=== PATIENT | female | born 1965 | race Caucasian/White ===

== ENCOUNTER 2018-01-01 10:11 | Emergency (ER) | payer OTHER ==
--- NOTE | 2018-01-01 10:56 | ER Document Report ---
ED Skin Rash/Insect Bite/Abscs - General Chief Complaint: Abscess Stated Complaint: ABSCESS Time Seen by Provider: 01/01/18 10:43 Mode of Arrival: Ambulatory Information source: Patient Notes: 52-year-old female presents to ED for concern of cyst to the right groin that is painful and is increasing in size. She states the pain started on Tuesday. She states she has a history of the same type of abscess in the past as well as pilonidal cyst. She is alert and oriented speaks in full sentences pupils equal and reactive light respirations regular and unlabored and able to walk with a even steady gait. TRAVEL OUTSIDE OF THE [place] IN LAST 30 DAYS: No - HPI Patient complains to provider of: Tender/swollen area Onset: Other - Fried Onset/Duration: Gradual Quality of pain: Sharp Severity: Mild Pain Level: 2 Skin Character: Abscess Quality of rash: Painful Identify cause: No Exacerbated by: Movement, Walking Relieved by: Denies Similar symptoms previously: Yes Recently seen / treated by doctor: No - Related Data Allergies/Adverse Reactions: acetaminophen [From Percocet] Allergy (Verified 01/01/18 10:14) amoxicillin [From Augmentin] Allergy (Verified 01/01/18 10:14) azithromycin Allergy (Verified 01/01/18 10:14) clavulanic acid [From Augmentin] Allergy (Verified 01/01/18 10:14) codeine Allergy (Verified 01/01/18 10:51) diazepam [From Valium] Allergy (Verified 01/01/18 10:14) erythromycin base Allergy (Verified 01/01/18 10:14) levofloxacin [From Levaquin] Allergy (Verified 01/01/18 10:14) oxycodone [From Percocet] Allergy (Verified 01/01/18 10:14) Penicillins Allergy (Verified 01/01/18 10:14) Past Medical History - General Information source: Patient - Social History Smoking Status: Former Smoker Cigarette use (# per day): No Chew tobacco use (# tins/day): No Smoking Education Provided: No Frequency of alcohol use: Occasional Drug Abuse: None 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 Lives with: Family Family History: Reviewed & Not Pertinent Patient has suicidal ideation: No Patient has homicidal ideation: No - Past Medical History Cardiac Medical History: Reports: Hx Hypercholesterolemia Pulmonary Medical History: Reports: Hx Pneumonia EENT Medical History: Reports: None, Other - Parotid tumor removed noncancerous Neurological Medical History: Reports: None Endocrine Medical History: Reports: None Renal/ Medical History: Reports: Hx Kidney Stones, Other - Endometriosis Malignancy Medical History: Reports: None GI Medical History: Reports: None Musculoskeltal Medical History: Reports Hx Musculoskeletal Trauma Skin Medical History: Reports Hx Cellulitis - Pilonidal cyst multiple abscesses Psychiatric Medical History: Reports: Hx Anxiety, Hx Depression Traumatic Medical History: Reports: None Infectious Medical History: Reports: None Past Surgical History: Reports: Hx Cholecystectomy, Hx Orthopedic Surgery - bilateral knees, Other - Parotid gland tumor removed, pilonidal cyst removal - Immunizations Immunizations up to date: Yes Review of Systems - Review of Systems Constitutional: No symptoms reported EENT: No symptoms reported Cardiovascular: No symptoms reported Respiratory: No symptoms reported Gastrointestinal: No symptoms reported Genitourinary: No symptoms reported Female Genitourinary: No symptoms reported Musculoskeletal: No symptoms reported Skin: Other - Abscess to right groin at the crease between the pelvic and thigh Hematologic/Lymphatic: No symptoms reported Neurological/Psychological: No symptoms reported -: Yes All other systems reviewed and negative Physical Exam - Vital signs Vitals: Temp Pulse Resp BP Pulse Ox 99.4 F 118 H 16 137/79 H 96 01/01/18 10:17 01/01/18 10:17 01/01/18 10:17 01/01/18 10:17 01/01/18 10:17 Interpretation: Normal - General General appearance: Appears well, Alert - HEENT Head: Normocephalic, Atraumatic Eyes: Normal Pupils: PERRL - Respiratory Respiratory status: No respiratory distress Chest status: Nontender Breath sounds: Normal Chest palpation: Normal - Cardiovascular Rhythm: Regular Heart sounds: Normal auscultation Murmur: No - Abdominal Inspection: Normal Distension: No distension Bowel sounds: Normal Tenderness: Nontender Organomegaly: No organomegaly - Back Back: Normal, Nontender - Extremities General upper extremity: Normal inspection, Nontender, Normal color, Normal ROM , Normal temperature General lower extremity: Normal inspection, Nontender, Normal color, Normal ROM , Normal temperature, Normal weight bearing. No: Mendoza's sign - Neurological Neuro grossly intact: Yes Cognition: Normal Orientation: AAOx4 [place] Coma Scale Eye Opening: Spontaneous Uday Coma Scale Verbal: Oriented [place] Coma Scale Motor: Obeys Commands [place] Coma Scale Total: 15 Speech: Normal Motor strength normal: LUE, RUE, LLE, RLE Sensory: Normal - Psychological Associated symptoms: Normal affect, Normal mood - Skin Skin Temperature: Warm Skin Moisture: Dry Skin Color: Normal Skin irregularity: Abscess - Decreased between the right thigh and pelvic area Character of irregularity: Erythematous Irregularity with: Swelling, Tenderness, Warmth Course - Vital Signs Vital signs: Temp Pulse Resp BP Pulse Ox 98.5 F 107 H 18 145/84 H 97 01/01/18 11:55 01/01/18 11:55 01/01/18 11:55 01/01/18 11:55 01/01/18 11:55 Procedures - Incision and Drainage Right Groin Time completed: :41 Type: Simple mL's of anesthetic: 5 Blade size: 11 I&D procedure: Shurclens applied - surgical scrub, Sterile dressing applied Incision Method: Incision made by scalpel Amount/type of drainage: moderate amount purulent Discharge - Discharge Clinical Impression: Abscess of right groin HTN (hypertension) Qualifiers: Hypertension type: unspecified Qualified Code(s): I10 - Essential (primary) hypertension Condition: Stable Disposition: HOME, SELF-CARE Instructions: Family Physicians / Practices Additional Instructions: ABSCESS: You have an abscess (boil). This a pus-forming infection, usually due to staph. Some boils may be left to drain on their own, but most require lancing. From the time the tender lump first appears, it may be three or four days before the abscess is ready to erin. Local heat and rest help at this stage of treatment. An antibiotic may prevent spread of the infection. Once the abscess is opened, packing may be placed into it. This is done so pus is not sealed inside by premature closure of the cavity. The packing will be removed at your follow-up visit or you may be advised to remove it yourself at home. Sometimes this packing must be replaced a few times during healing. The wound will heal with surprisingly little scar. Depending on the size and location of an abscess, healing can take one to four weeks. You may shower and wash the area around the incision site two or three times a day. Antibiotics may be prescribed, but are usually not necessary after an abscess has been drained. If you develop fever, chills, worsening pain, or increasing swelling in the area, call the doctor or return immediately. POST INCISION AND DRAINAGE: You have had an incision made to allow drainage of an abscess. The incision must remain open so that pus and debris can drain from the wound. If the abscess cavity is large, packing is placed. This keeps the tissues from collapsing and trapping pus inside, while the body shrinks the cavity. The packing may need to be replaced every day or two. The physician will instruct you on the packing. Keep a bulky dressing over the area. Replace it if it becomes saturated with blood or pus. Do not disturb the packing (if present). You may shower and cleanse the area with gentle soap and warm water two or three times a day. Local warmth may be soothing, and may promote faster healing. Return if you develop high fever or chills, or if you note spreading redness, increasing swelling, or increasing tenderness. Epsom Salt Soaks Soak the wound area in a container of warm epsom salt water. If you can't get the wound area into a bucket or landry, use a folded towel soaked in the epsom salt solution and apply to the area. Use clean hot tap water (about the temperature of a very warm bath), mixing in about one (1) teaspoon for every pint of water. Two gallon --> 16 teaspoons Epsom Salts One gallon --> 8 teaspoons Epsom Salts Two quarts --> 4 teaspoons Epsom Salts One quart --> 2 teaspoons Epsom Salts Soak the wound for about 20 minutes while gently moving it around in the water. Repeat this four (4) times a day. Clindamycin You have been given a prescription for the antibiotic clindamycin. It is often prescribed for infections in the mouth, such as dental infections or abscesses, and for skin infections due to MRSA. It's important that you take all the medication, unless instructed otherwise by your physician. Failure to complete the entire course can result in relapse of your condition. Common side effects of antibiotics include nausea, intestinal cramping, or diarrhea. Women may develop vaginal yeast infections, and babies can get yeast (thrush) in the mouth following the use of antibiotics. Contact your physician if you develop significant side effects from this medication. Allergy to this antibiotic can result in hives, wheezing, faintness, or itching. If symptoms of allergy occur, stop the medication and call the doctor. FOLLOW-UP CARE: Most simple abscesses will not require a follow up visit. If you had packing placed in the abscess, remove it as instructed by the physician. If you have been referred to a physician for follow-up care, call the physicians office for an appointment as you were instructed or within the next two days. If you experience worsening or a significant change in your symptoms, return to the Emergency Department at any time for re-evaluation. Prescriptions: Clindamycin HCl 300 mg PO Q6 #28 capsule Forms: Elevated Blood Pressure, Return to Work Referrals: MICHELL BLANCHARD MD [Primary Care Provider] - Follow up as needed
[2018-01-01] MEDS ORDERED: CLINDAMYCIN HCL 150 MG CAPSULE PO ONE (11:49)
[2018-01-01 11:56] VITALS: BP 145/84
== END 2018-01-01 12:03 | disposition home or self-care (01) ==
LOC: ER 10:11
PROC: 0H9HXZZ Drainage of Right Upper Leg Skin, External Approach (ICD-10-PCS; principal; 2018-01-01)
DX: L02.214 Cutaneous abscess of groin (principal); I10 Essential (primary) hypertension; Z87.891 Personal history of nicotine dependence
CPT/HCPCS: 87070; 87075; 87077; 87186; 87205; 99283

== ENCOUNTER 2018-09-09 11:34 | Emergency (ER) | payer OTHER ==
--- NOTE | 2018-09-09 13:39 | ER Document Report ---
ED Medical Screen (RME) - General Chief Complaint: Leg Pain Stated Complaint: RIGHT LEG PAIN Time Seen by Provider: 09/09/18 13:30 Primary Care Provider: MICHELL BLANCHARD MD [Primary Care Provider] - Follow up as needed Notes: 52-year-old female patient complains of right leg pain for 1 week. It is worse when she walks. When she walks the pain is predominantly in the calf region. She does not know if there is any swelling but does not think there is. Brief exam shows the cath to be a little firm, and a little bit tender. There is also some tenderness to the anterior medial leg muscles. I have greeted and performed a rapid initial assessment of this patient. A comprehensive ED assessment and evaluation of the patient, analysis of test results and completion of the medical decision making process will be conducted by additional ED providers. TRAVEL OUTSIDE OF THE [place] IN LAST 30 DAYS: No - Related Data Allergies/Adverse Reactions: acetaminophen [From Percocet] Allergy (Verified 01/01/18 10:14) amoxicillin [From Augmentin] Allergy (Verified 01/01/18 10:14) azithromycin Allergy (Verified 01/01/18 10:14) clavulanic acid [From Augmentin] Allergy (Verified 01/01/18 10:14) codeine Allergy (Verified 01/01/18 10:51) diazepam [From Valium] Allergy (Verified 01/01/18 10:14) erythromycin base Allergy (Verified 01/01/18 10:14) levofloxacin [From Levaquin] Allergy (Verified 01/01/18 10:14) oxycodone [From Percocet] Allergy (Verified 01/01/18 10:14) Penicillins Allergy (Verified 01/01/18 10:14) Past Medical History - Past Medical History Cardiac Medical History: Reports: Hx Hypercholesterolemia Pulmonary Medical History: Reports: Hx Pneumonia Renal/ Medical History: Reports: Hx Kidney Stones. Denies: Hx Peritoneal Dialysis Musculoskeltal Medical History: Reports Hx Musculoskeletal Trauma Skin Medical History: Reports Hx Cellulitis - Pilonidal cyst multiple abscesses Psychiatric Medical History: Reports: Hx Anxiety, Hx Depression Past Surgical History: Reports: Hx Cholecystectomy, Hx Orthopedic Surgery - bilateral knees, Other - Parotid gland tumor removed, pilonidal cyst removal - Immunizations Immunizations up to date: Yes Physical Exam - Vital signs Vitals: Temp Pulse Resp BP Pulse Ox 98.9 F 91 18 115/80 96 09/09/18 12:01 09/09/18 12:01 09/09/18 12:01 09/09/18 12:01 09/09/18 12:01 Course - Vital Signs Vital signs: Temp Pulse Resp BP Pulse Ox 98.9 F 91 18 115/80 96 09/09/18 12:01 09/09/18 12:01 09/09/18 12:01 09/09/18 12:01 09/09/18 12:01 Doctor's Discharge - Discharge Referrals: MICHELL BLANCHARD MD [Primary Care Provider] - Follow up as needed
[2018-09-09 14:18] LABS: ABSOLUTE BASOPHILS # (AUTO) 0.1 10^3/uL (0.0-0.2); ABSOLUTE EOSINOPHILS # (AUTO) 0.3 10^3/uL (0.0-0.6); ABSOLUTE LYMPHOCYTES (AUTO) 2.2 10^3/uL (0.5-4.7); ABSOLUTE MONOCYTES (AUTO) 0.4 10^3/uL (0.1-1.4); ABSOLUTE NEUT (AUTO) 2.9 10^3/uL (1.7-8.2); ALANINE AMINOTRANSFERASE 32 U/L (9-52); ALBUMIN 4.5 g/dL (3.5-5.0); ALKALINE PHOSPHATASE 92 U/L (38-126); ANION GAP 5 (5-19); ASPARTATE AMINO TRANSFERASE 24 U/L (14-36); BASOPHILS % (AUTO) 0.9 % (0-2); BILIRUBIN,DIRECT 0.1 mg/dL (0.0-0.4); BILIRUBIN,TOTAL 0.4 mg/dL (0.2-1.3); BLOOD UREA NITROGEN 11 mg/dL (7-20); CALCIUM 9.2 mg/dL (8.4-10.2); CARBON DIOXIDE 32 mmol/L (22-30); CHLORIDE 105 mmol/L (98-107); GLUCOSE 96 mg/dL (75-110); HEMATOCRIT 42.3 % (36.0-47.0); HEMOGLOBIN 14.5 g/dL (12.0-15.5); LYMPHOCYTES % (AUTO) 37.9 % (13-45); MEAN CORPUSCULAR HEMOGLOBIN 32.1 pg (27.0-33.4); MEAN CORPUSCULAR HGB CONC 34.2 g/dL (32.0-36.0); MEAN CORPUSCULAR VOLUME 94 fl (80-97); PLATELET COUNT 296 10^3/uL (150-450); POTASSIUM 4.4 mmol/L (3.6-5.0); RED BLOOD COUNT 4.51 10^6/uL (3.72-5.28); RED CELL DISTRIBUTION WIDTH 13.4 % (11.5-14.0); SEGMENTED NEUTROPHILS % (AUTO) 49.2 % (42-78); SODIUM 141.6 mmol/L (137-145); TOTAL CELLS COUNTED % (AUTO) 100 %; TOTAL PROTEIN 7.3 g/dL (6.3-8.2); WHITE BLOOD COUNT 5.8 10^3/uL (4.0-10.5)
--- NOTE | 2018-09-09 16:02 | RADIOLOGY REPORT (SQ) ---
EXAM DESCRIPTION: VENOUS UNILATERAL LOWER COMPLETED DATE/TIME: 09/09/2018 3:51 pm REASON FOR STUDY: right leg pain COMPARISON: None. TECHNIQUE: Dynamic and static davidson scale and color images acquired of the right leg venous system. S elected spectral images acquired with additional compression and augmentation maneuvers. The contrala teral common femoral vein and saphenofemoral junction were also imaged. Images stored on PACS. LIMITATIONS: None. FINDINGS: COMMON FEMORAL: Normal phasicity, compression and augmentation. No visualized echogenic ma terial on davidson scale. No defects on color images. FEMORAL: Normal compression and augmentation. No visualized echogenic material on davidson scale. No defe cts on color images. POPLITEAL: Normal compression, augmentation. No visualized echogenic material on davidson scale. No defec ts on color images. CALF VESSELS: Normal compression, augmentation. No visualized echogenic material on davidson scale. No de fects on color images. GSV and SSV: Normal compression, augmentation. No visualized echogenic material on davidson scale. No def ects on color images. ANY DEEP VENOUS INSUFFICIENCY: Not evaluated. ANY EVIDENCE OF POPLITEAL CYST: No. CONTRALATERAL COMMON FEMORAL VEIN AND SAPHENOFEMORAL JUNCTION: Normal phasicity, compression and augmentation. No visualized echogenic material on davidson scale. No de fects on color images. IMPRESSION: NO EVIDENCE OF DVT OR SVT IN THE RIGHT LEG. TECHNICAL DOCUMENTATION: JOB ID: [id number] 2010 [employer]- All Rights Reserved Reading location - IP/workstation name: [email or web address]
--- NOTE | 2018-09-09 17:02 | ER Document Report ---
ED General - General Chief Complaint: Leg Pain Stated Complaint: RIGHT LEG PAIN Time Seen by Provider: 09/09/18 13:30 Primary Care Provider: MICHELL BLANCHARD MD [Primary Care Provider] - Follow up as needed TRAVEL OUTSIDE OF THE [place] 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 She is never anything like this in the past nothing seems to make it better or worse is not tried anything to try and make it better or worse. She is seen regularly by a chiropractor they have not seen her and adjusted her recently. - Related Data Allergies/Adverse Reactions: acetaminophen [From Percocet] Allergy (Verified 01/01/18 10:14) amoxicillin [From Augmentin] Allergy (Verified 01/01/18 10:14) azithromycin Allergy (Verified 01/01/18 10:14) clavulanic acid [From Augmentin] Allergy (Verified 01/01/18 10:14) codeine Allergy (Verified 01/01/18 10:51) diazepam [From Valium] Allergy (Verified 01/01/18 10:14) erythromycin base Allergy (Verified 01/01/18 10:14) levofloxacin [From Levaquin] Allergy (Verified 01/01/18 10:14) oxycodone [From Percocet] Allergy (Verified 01/01/18 10:14) Penicillins Allergy (Verified 01/01/18 10:14) Past Medical History - General Information source: Patient - Social History Smoking Status: Never Smoker Chew tobacco use (# tins/day): No Frequency of alcohol use: Rare Drug Abuse: None Family History: Reviewed & Not Pertinent Patient has suicidal ideation: No Patient has homicidal ideation: No - Past Medical History Cardiac Medical History: Reports: Hx Hypercholesterolemia Pulmonary Medical History: Reports: Hx Pneumonia Renal/ Medical History: Reports: Hx Kidney Stones. Denies: Hx Peritoneal Dialysis Musculoskeletal Medical History: Reports Hx Musculoskeletal Trauma Skin Medical History: Reports Hx Cellulitis - Pilonidal cyst multiple abscesses Psychiatric Medical History: Reports: Hx Anxiety, Hx Depression Past Surgical History: Reports: Hx Cholecystectomy, Hx Orthopedic Surgery - bilateral knees, Other - Parotid gland tumor removed, pilonidal cyst removal - Immunizations Immunizations up to date: Yes Review of Systems - Review of Systems -: Yes All other systems reviewed and negative Physical Exam - Vital signs Vitals: Temp Pulse Resp BP Pulse Ox 98.9 F 91 18 115/80 96 09/09/18 12:01 09/09/18 12:01 09/09/18 12:01 09/09/18 12:01 09/09/18 12:01 Interpretation: Normal - General General appearance: Appears well, Alert - HEENT Head: Normocephalic, Atraumatic Eyes: Normal Pupils: PERRL - Respiratory Respiratory status: No respiratory distress Chest status: Nontender Breath sounds: Normal Chest palpation: Normal - Cardiovascular Rhythm: Regular Heart sounds: Normal auscultation Murmur: No - Abdominal Inspection: Normal Distension: No distension Bowel sounds: Normal Tenderness: Nontender Organomegaly: No organomegaly - Back Back: Normal, Nontender - Extremities General upper extremity: Normal inspection, Nontender, Normal color, Normal ROM, Normal temperature General lower extremity: Tender - Tenderness to palpation along the right gastr ocnemius as well as the medial hamstrings tendon - Neurological Neuro grossly intact: Yes Cognition: Normal Orientation: AAOx4 [place] Coma Scale Eye Opening: Spontaneous Uday Coma Scale Verbal: Oriented [place] Coma Scale Motor: Obeys Commands Uday Coma Scale Total: 15 Speech: Normal Motor strength normal: LUE, RUE, LLE, RLE Sensory: Normal - Psychological Associated symptoms: Normal affect, Normal mood - Skin Skin Temperature: Warm Skin Moisture: Dry Skin Color: Normal Course - Re-evaluation Re-evalutation: 09/10/18 00:02 Is a woman who through triage had labs ordered as well as an ultrasound of her lower extremity. She notes that she has had cramps and pain in the last couple of days which is been refractory to improvement with the use of Motrin. Her ultrasound is negative, she has a low level positive d-dimer. She does not demonstrate any other signs to suggest more serious underlying thromboembolic event, her chemistries are unremarkable. Examination she is able to ambulate, she states that she does have chronic back pain and potentially could have been sitting inappropriately previously leading to the pain that she is now having. I do believe that she is got a more serious underlying cause of her leg pain suc h as but not limited to cauda equina syndrome, DVT, cellulitis, phlegmasia cerulea dolens. - Vital Signs Vital signs: Temp Pulse Resp BP Pulse Ox 98.2 F 82 16 129/82 H 97 09/09/18 17:08 09/09/18 17:08 09/09/18 17:08 09/09/18 17:08 09/09/18 17:08 - Laboratory Result Diagrams: 09/09/18 13:48 09/09/18 13:48 Laboratory results interpreted by me: 09/09/18 09/09/18 13:48 13:48 D-Dimer 0.63 H Carbon Dioxide 32 H Discharge - Discharge Clinical Impression: Leg pain, right, Cramps, extremity Condition: Good Disposition: HOME, SELF-CARE Instructions: Leg Cramps ([facility]) Additional Instructions: You were seen today in the emergency department for the tightness in your legs. You had evaluation including a physical exam, blood tests and an ultrasound. You do not have a blood clot in your leg that we can see. It is possible that your leg tightness is related to the muscle in the back. Use muscle relaxers and anti-inflammatories as needed for the pain. Return for worsening pain fevers or chills inability to walk or other symptoms otherwise schedule point with a primary doctor this week. Prescriptions: Cyclobenzaprine HCl [Flexeril 5 mg Tablet] 5 mg PO TID PRN #15 tablet PRN Reason: Referrals: MICHELL BLANCHARD MD [Primary Care Provider] - Follow up as needed
[2018-09-09 17:09] VITALS: BP 129/82
== END 2018-09-09 17:09 | disposition home or self-care (01) ==
LOC: ER 11:34
DX: M79.604 Pain in right leg (principal); R25.2 Cramp and spasm; Z88.6 Allergy status to analgesic agent; Z88.5 Allergy status to narcotic agent; Z88.0 Allergy status to penicillin; Z88.1 Allergy status to other antibiotic agents; Z88.8 Allergy status to other drugs, medicaments and biological substances
CPT/HCPCS: 36415; 80053; 85025; 85379; 93971; 99284